=== PATIENT | male | born 1945 | race Caucasian/White ===

== ENCOUNTER 2017-09-13 10:07 | Day surgery (SDC) | payer MEDICARE, BC ==
[2017-09-08 09:30] VITALS: BMI 29.5
[~2017-09-13 10:07] MED LIST: LACTATED RINGERS 1,000 ML IV SCH
[2017-09-13 10:56] VITALS: RESP 16; TEMP 98.1
[2017-09-13] MEDS ORDERED: LIDOCAINE 1% 20 ML VIAL (10MG/ML) FOR IV START INTRADERMA ONE (10:59)
[2017-09-13] MEDS ORDERED: PROPOFOL 10 MG/ML 20 ML VIAL IV ONE (11:17)
--- NOTE | 2017-09-13 11:47 | P.PCN ---
Date of Procedure: 09/13/17 Procedure(s) Performed: Procedure: Total colonoscopy. Preoperative diagnosis: Screening for neoplasia. Postoperative diagnosis: Exam within normal limits. Preparation: HalfLytely prep. Sedation: Was provided by anesthesia. Brief clinical history: The patient is a 72-year-old male who is referred for this evaluation for screening for neoplasia. He had a prior colonoscopy more than 11 years ago. He believes he had a polyp removed back then. At this time , he has no abdominal complaints, bleeding or anemia. Procedure: With the patient on his left lateral decubitus position and after informed consent and adequate sedation, the perianal area was inspected and it did not show any fissures or fistulas. There were no masses felt on digital rectal examination. The Olympus CFQ 160L video colonoscope was then inserted in the rectum in the usual fashion and advanced to the cecum. The mucosa appeared healthy. No polyps or tumors were seen or any obvious diverticular disease or other pathology. I retroflexed the endoscope in the rectum before the endoscope was withdrawn. The patient tolerated the procedure well. Plan: The patient was reassured. Will follow up with you as planned and I recommended repeat exam in 10 years.
[2017-09-13 12:04] VITALS: BP 151/74; PULSE 58
== END 2017-09-13 12:28 | disposition home or self-care (01) ==
LOC: ORWHC2ENDO 10:07
DX: Z12.11 Encounter for screening for malignant neoplasm of colon (principal); E78.5 Hyperlipidemia, unspecified; E07.9 Disorder of thyroid, unspecified; G60.0 Hereditary motor and sensory neuropathy; Z79.82 Long term (current) use of aspirin; Z79.890 Hormone replacement therapy; Z79.899 Other long term (current) drug therapy
CPT/HCPCS: J2704; G0121

== ENCOUNTER 2022-02-17 06:28 | Day surgery (SDC) | payer BC, MEDICARE ==
[2022-02-16 09:14] VITALS: BMI 28.5
[~2022-02-17 06:28] MED LIST changes: +LIDOCAINE 1% (10MG/ML) FOR IV START INTRADERMA PRN; +MOXIFLOXACIN HCL 0.5% DROPS 3 ML BTL OP PRN; +TETRACAINE 0.5% OPHTH (PF) DROPS 4 ML BTL OP PRN; +TIMOLOL 0.5% OPHTH DROPS 5 ML BTL OP PRN
[2022-02-17 06:58] VITALS: RESP 16; TEMP 97.6
[2022-02-17] MEDS: PILOCARPINE 2% OPHTH DROPS 15 ML BTL OP PRN ×3 (07:02→07:16)
[2022-02-17] MEDS ORDERED: MIDAZOLAM 2 MG/2 ML VIAL ONE (07:53)
[2022-02-17] MEDS ORDERED: fentaNYL (PF) 50 MCG/ML 2 ML AMP ONE (07:53)
[2022-02-17] MEDS ORDERED: CHONDROITIN-SOD HYALURONATE 1 EACH SYRINGE (0.75 ML) INTRAOCULA ONE (07:55)
[2022-02-17] MEDS ORDERED: LIDOCAINE 1% INJ 10MG/ML (5 ML VIAL-PF) SQ ONE (07:56)
[2022-02-17] MEDS ORDERED: TRYPAN BLUE 0.06% SYRINGE 0.5 ML SYRINGE INTRAOCULA ONE (07:58)
[2022-02-17] MEDS ORDERED: BALANCED SALT IRRIG SOLN COMB2 500 ML IRRIGATION ONE (08:01)
[2022-02-17] MEDS ORDERED: MOXIFLOXACIN HCL 0.5% DROPS 3 ML BTL RIGHT EYE ONE ×2 (08:06→08:21)
[2022-02-17] MEDS ORDERED: TIMOLOL 0.5% OPHTH DROPS 5 ML BTL RIGHT EYE ONE ×2 (08:07→08:21)
[2022-02-17] MEDS ORDERED: BALANCED SALT IRRIG SOLN COMB2 15 ML IRRIG.SOLN IRRIGATION ONE (08:15)
--- NOTE | 2022-02-17 08:22 | P.OP ---
Date of Procedure: 02/17/22 Preoperative Diagnosis: POAG moderate Postoperative Diagnosis: same Implants: goniotomy OD Anesthesia: MAC Surgeon: Quinten Haines Pathology: none sent Condition: stable Disposition: same day Indications for Procedure: better glaucoma control Operative Findings: no complications
[2022-02-17 08:32] VITALS: BP 153/91
[2022-02-17 08:42] VITALS: PULSE 53
--- NOTE | 2022-02-18 09:27 | OP ---
OPERATIVE REPORT DATE OF SURGERY: February 17, 2022. PROCEDURE PERFORMED: Goniotomy of the right eye. PREOPERATIVE DIAGNOSIS: Primary open-angle glaucoma, moderate stage. POSTOPERATIVE DIAGNOSIS: Primary open angle glaucoma, moderate stage. SURGEON: Dr. Quinten Haines. ANESTHESIA: Topical. ESTIMATED BLOOD LOSS: Less than 5 mL. SPECIMEN: Taken none. NARRATIVE: After obtaining the appropriate consent, the patient was brought to the operating room. There he was placed on cardiac monitoring prepped and draped in the usual sterile manner. He was approached from his right temporal side and at the 9 o'clock position, a 2.5 mm keratome was used to create a self-sealing corneal flap incision. Through this opening 1% Xylocaine MPF 50/50 mixed with balanced salt solution was injected into the anterior chamber. This was followed by Trypan blue which was allowed to dwell in the eye for about 1 minute. The Trypan blue was then irrigated away and replaced with Viscoat. The patient was then asked to rotate his head approximately 45 degrees to his left and maintain gaze in that general direction. A gonio prism was placed on the patient's eye and the trabecular meshwork was easily identified with Trypan blue staining. A KBD goniotomy knife was passed across the anterior chamber to the nasal trabecular meshwork and using an inside-out technique. The anterior trabecular meshwork was removed easily from the patient's eye. A mild amount of bleeding was encountered as would be expected. The KBD knife was then removed from the anterior chamber and the remaining viscoelastic was then removed under irrigation and aspiration. The eye was then brought to slightly higher than normal intra-ocular pressure through the temporal incision after hydrating the incision with balance salt solution. The incision was then confirmed watertight. He received 2 drops of 0.5% timolol followed by 2 drops of moxifloxacin. He was then lightly patched and shielded in the usual manner. There were no complications from the procedure. He tolerated the procedure well. She returned to outpatient recovery in good condition. MMODL / IJN: [id number] /
== END 2022-02-17 09:16 | disposition home or self-care (01) ==
LOC: OR 06:28
PROVIDERS: ATTEND Ophthalmology
DX: H40.1132 Primary open-angle glaucoma, bilateral, moderate stage (principal); H04.129 Dry eye syndrome of unspecified lacrimal gland; H25.13 Age-related nuclear cataract, bilateral; H52.223 Regular astigmatism, bilateral; Z96.1 Presence of intraocular lens; E78.00 Pure hypercholesterolemia, unspecified; Z87.891 Personal history of nicotine dependence; Z83.3 Family history of diabetes mellitus; E03.9 Hypothyroidism, unspecified; Z79.82 Long term (current) use of aspirin; Z79.890 Hormone replacement therapy; Z79.899 Other long term (current) drug therapy; E78.5 Hyperlipidemia, unspecified; K21.9 Gastro-esophageal reflux disease without esophagitis; G62.9 Polyneuropathy, unspecified; Z80.51 Family history of malignant neoplasm of kidney; Z82.49 Family history of ischemic heart disease and other diseases of the circulatory system
CPT/HCPCS: 65820; J2250; J2001; J3010

== ENCOUNTER 2022-08-18 06:52 | Day surgery (SDC) | payer MEDICARE ==
[2022-08-13 16:33] VITALS: BMI 33.2
[2022-08-18] MEDS ORDERED: ONDANSETRON 4 MG/2 ML VIAL IVP PRN (07:00)
[2022-08-18] MEDS: CYCLOPENTOLATE 1% OPHTH SOLN 2 ML BTL OP PRN ×3 (08:25→08:37)
[2022-08-18] MEDS ORDERED: LACTATED RINGERS 1,000 ML IV ONE (08:26)
[2022-08-18] MEDS: PHENYLEPHRINE 2.5% OPHTH DRP 2ML OP PRN ×3 (08:28→08:40)
[2022-08-18 08:44] VITALS: TEMP 98
[2022-08-18] MEDS ORDERED: MIDAZOLAM 2 MG/2 ML VIAL ONE (09:34)
[2022-08-18] MEDS ORDERED: fentaNYL (PF) 50 MCG/ML 2 ML AMP ONE (09:34)
[2022-08-18] MEDS ORDERED: LIDOCAINE 1% (PF) 10MG/ML VIAL MISCELLANE ONE (09:49)
[2022-08-18] MEDS ORDERED: BALANCED SALT IRRIG SOLN COMB2 15 ML IRRIG.SOLN IRRIGATION ONE (09:49)
[2022-08-18] MEDS ORDERED: DUOVISC KIT (GREEN BOX) INTRAOCULA ONE (09:49)
[2022-08-18] MEDS ORDERED: EPINEPHrine (PF) 0.3 ML in BALANCED SALT IRRIG SOLN COMB2 500 ML IRRIGATION ONE (09:52)
--- NOTE | 2022-08-18 10:13 | P.OP ---
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
[2022-08-18 10:31] VITALS: BP 156/82; PULSE 57; RESP 17
--- NOTE | 2022-08-18 20:17 | OP ---
OPERATIVE REPORT PROCEDURE PERFORMED: Phacoemulsification of cataract with intraocular lens implant of the left eye with goniotomy of the left eye. PREOPERATIVE DIAGNOSES: Nuclear sclerosis, cortical sclerosis, posterior subcapsular cataract, and pseudoexfoliative glaucoma, left eye. POSTOPERATIVE DIAGNOSES: Nuclear sclerosis, cortical sclerosis, posterior subcapsular cataract, and pseudoexfoliative glaucoma, left eye. ANESTHESIA: Topical. ESTIMATED BLOOD LOSS: Less than 5 mL. SPECIMEN TAKEN: None. NARRATIVE: After obtaining the appropriate consent, the patient was brought to the operating room. There, he was asked to sit upright, and the axes 0 and 180 degrees were identified and marked with a gentian mike marker. He was then placed in the proper supine position under cardiac monitoring and prepped and draped in the usual sterile manner. Using previously-acquired corneal topography information, the axis of 134 degrees was identified and marked with a Uanbai axis marker. At the 5 o'clock position, an MVR blade was used to create a paracentesis port. Through this opening, 1% Xylocaine MPF 50:50 mix with balanced salt solution was injected into the anterior chamber. This was followed by stabilization of the anterior chamber with Viscoat. At the 3 o'clock position, a 2.5 mm keratome was used to create a self-sealing corneal flap incision. The patient was then asked to rotate his head approximately 45 degrees to his right, and a Gonio prism was placed on the patient's eye. The trabecular meshwork was easily identified due to the pseudoexfoliative material buildup, and the goniotomy knife was passed across the anterior chamber, and a goniotomy performed for approximately 5 clock hours on the nasal side of the patient's eye was accomplished using the arvin and meet method. The patient was then rotated to the normal supine position, and a cystotome was used to begin a continuous tear capsulorrhexis, which was then completed using the Utrata forceps. Hydrodissection and hydrodelineation of the lens were accomplished with balanced salt solution. Phacoemulsification of the lens utilizing phaco chop was accomplished in 18.86 seconds at 19% power. Additional Xylocaine MPF was instilled into the anterior chamber. This was followed by removal of the remaining cortical material as well as careful polishing of the posterior capsule in capsule vacuum mode. Provisc was then used to stabilize the capsular bag, and a 13 mm capsular tension ring, model [id number] was passed across the anterior chamber and into the capsular bag at the equator. The lens was deployed into the capsular bag without difficulty. This was followed by placement of a Bausch and Lomb MX60ET 19.5 x 1.25 posterior chamber intraocular lens. The remaining viscoelastic was removed from in and around the intraocular lens, and the axis of the lens was then aligned with the previously-placed corneal noonan at about 134 degrees. The eye was then brought to slightly above normal intraocular pressure through the paracentesis port, and the wounds were hydrated to ensure closure and reduce risk of rotation of the implant. Tisseel was used to ensure proper closure of both the paracentesis as well as the main incision. He then received 2 drops of 0.5% timolol followed by 2 drops of moxifloxacin, was then lightly patched and shielded in the usual manner. There were no complications from the procedure. He tolerated the procedure well and was returned to outpatient recovery in good condition. MMKATHERINE / DEUCEN: [id number] /
== END 2022-08-18 10:55 | disposition home or self-care (01) ==
LOC: OR 06:52
PROVIDERS: ATTEND Ophthalmology
DX: H25.12 Age-related nuclear cataract, left eye (principal); H40.1211 Low-tension glaucoma, right eye, mild stage; H40.1420 Capsular glaucoma with pseudoexfoliation of lens, left eye, stage unspecified; H25.042 Posterior subcapsular polar age-related cataract, left eye; H25.012 Cortical age-related cataract, left eye; H40.1132 Primary open-angle glaucoma, bilateral, moderate stage; H04.129 Dry eye syndrome of unspecified lacrimal gland; H10.45 Other chronic allergic conjunctivitis; H26.8 Other specified cataract; H43.391 Other vitreous opacities, right eye; H52.11 Myopia, right eye; H52.223 Regular astigmatism, bilateral; Z96.1 Presence of intraocular lens
CPT/HCPCS: 66984; 65820; C1762; C1780; J2250; J2405; J0171; J3010; J2001

== ENCOUNTER → 2023-08-02 | Outpatient (CLI) | payer MEDICARE ==
--- NOTE | 2023-08-02 16:39 | US ---
EXAMINATION TYPE: US scrotum with doppler. Grayscale and color Doppler Duplex imaging performed of t simran scrotum. DATE OF EXAM: 08/02/2023 COMPARISON: NONE CLINICAL INDICATION: Male, 78 years old with history of N50.89 OTHER SPECIFIED DISORDERS OF THE MALE GENIT; Pressure and edema bilaterally EXAM MEASUREMENTS: TESTICLES: Right Testicle: 4.9 x 2.6 x 3.3 cm Left Testicle: 4.4 x 2.4 x 3.9 cm EPIDIDYMIS HEAD: Right Epididymis: 1.4 cm Left Epididymis: 1.5 cm Doppler performed to assess for testicular vascularity; good bilateral color flow and waveforms are s een. There is no evidence of testicular torsion. Presence of hydroceles: yes, 4.2cm on the right and 3.9cm on the left Presence of varicoceles: no heterogeneous epididymis bilaterally tubular structure lateral to right testicle IMPRESSION: 1. Bilateral hydroceles.
== END | disposition home or self-care (01) ==
LOC: RADUSWWP 07:07
PROVIDERS: ATTEND Family Medicine
DX: N43.3 Hydrocele, unspecified (principal); N50.89 Other specified disorders of the male genital organs
CPT/HCPCS: 76870; 93975

== ENCOUNTER 2023-10-19 06:56 | Day surgery (SDC) | payer MEDICARE ==
[2023-10-19] MEDS: PILOCARPINE 2% OPHTH DROPS 15 ML BTL OP PRN (08:21)
[2023-10-19] MEDS: LACTATED RINGERS 1,000 ML IV SCH (08:28)
[2023-10-19 09:04] VITALS: TEMP 97.4
[2023-10-19] MEDS ORDERED: fentaNYL (PF) 50 MCG/ML 2 ML AMP ONE (09:24)
[2023-10-19] MEDS ORDERED: MIDAZOLAM 2 MG/2 ML VIAL ONE (09:24)
[2023-10-19] MEDS: mitoMYcin for Eyes 0.06 MG, EMPTY SYRINGE 1 SYR OP PRN (09:40)
[2023-10-19] MEDS: ATROPINE OPHTH SOLN 1% 5ML BTL OPHTHALMIC PRN (09:40)
[2023-10-19] MEDS: BALANCED SALT IRRIG SOLN COMB2 15 ML IRRIG.SOLN IRRIGATION ONE (09:41)
[2023-10-19] MEDS: LIDOCAINE 2%-EPI 1:100,000 20 ML VIAL SUBMUCOSAL ONE ×2 (09:42)
[2023-10-19] MEDS: EPINEPHrine (PF) 0.3 ML in BALANCED SALT IRRIG SOLN COMB2 500 ML IRRIGATION ONE (09:43)
[2023-10-19] MEDS: MOXIFLOXACIN HCL 0.5% DROPS 3 ML BTL RIGHT EYE ONE (09:44)
[2023-10-19] MEDS: FLUORESCEIN STRIPS 1 MG STRIP RIGHT EYE ONE (10:10)
--- NOTE | 2023-10-19 10:25 | P.OP ---
Date of Procedure: 10/19/23 Preoperative Diagnosis: POAG severe and uncontrolled Postoperative Diagnosis: same Procedure(s) Performed: Sunt impolnataion and MMC treatment for trabeculectomy, OD Implants: Ex-Press shunt P-50 Anesthesia: MAC Surgeon: Quinten aHines Pathology: none sent Condition: stable Disposition: same day Indications for Procedure: poorly controlled glaucoma Operative Findings: no complications
[2023-10-19 10:56] VITALS: PULSE 58; RESP 16
[2023-10-19 11:33] VITALS: BP 137/69
--- NOTE | 2023-10-19 21:03 | OP ---
OPERATIVE REPORT DATE OF SERVICE : 10/19/2023 PROCEDURE: Shunt implantation with mitomycin for the right eye. PREOPERATIVE DIAGNOSIS: Secondary glaucoma, poorly controlled of the right eye. POSTOPERATIVE DIAGNOSIS: Secondary glaucoma, poorly controlled of the right eye. ANESTHESIA: Monitored anesthesia care. ESTIMATED BLOOD LOSS: Less than 5 mL. SPECIMEN TAKEN: None. NARRATIVE: After obtaining the appropriate consent, the patient was brought to the operating room where he was placed under cardiac monitoring and prepped and draped in the usual sterile manner. He was approached from the 12 o'clock position, and a 6-0 silk suture was placed through the superior limbus of the cornea, and traction was applied to downturn the eye to expose the superior conjunctivae. At the temporal side of the eye, a small conjunctival incision using sharp and blunt dissection was extended across the superior area of the globe. Initially, this was infiltrated with 2% lidocaine and epinephrine to provide anesthesia as well as some hemostasis to the area involved. Using Dieudonne scissors and sharp and blunt dissection, a peritomy was performed along the superior limbus of the cornea and dissection of the conjunctival tissue with Tenon's capsule, was bluntly dissected as far posteriorly as was permissible from the 9 o'clock to 3 o'clock position. Hemostasis was controlled using bipolar cautery. An area centrally adjacent to the limbus was chosen of 3 mm x 3 mm in size, which was confirmed using a Brake caliper. A partial-thickness scleral flap was raised and dissected towards the limbus of the cornea using a beveled crescent blade knife. Once this pocket was created, a Dieudonne scissors were placed against the inside of the pocket and releasing each side of the pocket to create the partial-thickness scleral flap. At this point, mitomycin 0.2 mg/mL, which was placed against the apex of the flap and under conjunctiva using a small piece of a Weck-Eulalia sponge material. This was left in place for about 3 minutes. The area was then copiously irrigated with balanced salt solution, and a 27-gauge hypodermic needle used as a trocar was marked with gentian mike and placed at the apex of the flap centrally between each side of the flap and was used to enter into the anterior chamber parallel to the iris. Once this opening was piloted, then the express shunt P50 was advanced through the opening into the anterior chamber. Confirmation of aqueous percolating through the shunt was easily identified when drying the area with a Weck-Eulalia sponge. The flap was then gently laid in place and two 10-0 nylon sutures were placed, one on each side of the flap to reduce the outflow, and the conjunctiva was then brought over the superior limbus of the cornea and was secured with 2 single interrupted 8-0 Vicryl sutures. Fluorescein was used to confirm watertight integrity while the conjunctiva was beginning to demonstrate the appropriate ballooning as one would expect with fluid being percolating through the area. The traction suture was removed from the eye, and a repeat Schiotz tonometry was performed on the eye. Using the Schiotz tonometer, a pressure of 4 mmHg or less with a 5.5 g weight was noted in comparison to the 25.8 mmHg using a 7.5 g weight on the Schiotz tonometer at the beginning of the case. Once this was confirmed, the patient then received 2 drops of 0.5% moxifloxacin as well as 2 drops of 1% atropine, which was then sent with the patient for him to continue to use beginning the day after surgery. The eye was then lightly patched and shielded, and he was returned to recovery in good condition. There were no complications from the procedure. He tolerated the procedure well and was returned to outpatient recovery in good condition. MMKATHERINE / WES: [id number] /
[2023-10-20] MEDS ORDERED: TETRACAINE 0.5% OPHTH (PF) DROPS 4 ML BTL OP PRN (05:00)
== END 2023-10-19 11:33 | disposition home or self-care (01) ==
LOC: OR 06:56
PROVIDERS: ATTEND Ophthalmology
DX: H40.1113 Primary open-angle glaucoma, right eye, severe stage (principal); E07.9 Disorder of thyroid, unspecified; K21.9 Gastro-esophageal reflux disease without esophagitis; Z79.890 Hormone replacement therapy; Z79.899 Other long term (current) drug therapy; Z98.890 Other specified postprocedural states
CPT/HCPCS: 66170; C1783; J2250; J0171; J3010

== ENCOUNTER 2024-06-06 08:55 | Day surgery (SDC) | payer MEDICARE ==
[~2024-06-06 08:55] MED LIST changes: -LIDOCAINE 1% (10MG/ML) FOR IV START INTRADERMA PRN; -MOXIFLOXACIN HCL 0.5% DROPS 3 ML BTL OP PRN; -TIMOLOL 0.5% OPHTH DROPS 5 ML BTL OP PRN
[2024-06-06] MEDS: IV FLUID CONTINUATION 1,000 ML IV ONE (09:32)
[2024-06-06] MEDS: PILOCARPINE 2% OPHTH DROPS 15 ML BTL OP PRN (09:45)
[2024-06-06 09:48] VITALS: TEMP 97.3
[2024-06-06] MEDS ORDERED: MIDAZOLAM 2 MG/2 ML VIAL ONE (11:08)
[2024-06-06] MEDS ORDERED: fentaNYL (PF) 50 MCG/ML 2 ML AMP ONE (11:08)
[2024-06-06] MEDS: mitoMYcin for Eyes 0.06 MG, EMPTY SYRINGE 1 SYR OP PRN (11:27)
[2024-06-06] MEDS: ATROPINE OPHTH SOLN 1% 5ML BTL OPHTHALMIC PRN (11:28)
[2024-06-06] MEDS: BALANCED SALT IRRIG SOLN COMB2 15 ML IRRIG.SOLN IRRIGATION ONE (11:28)
[2024-06-06] MEDS: LIDOCAINE 1% INJ 10MG/ML (5 ML VIAL-PF) SQ ONE (11:30)
[2024-06-06] MEDS: FLUORESCEIN STRIPS 1 MG STRIP RIGHT EYE ONE (12:20)
[2024-06-06] MEDS: NEOMYCIN-POLYMYXIN-DEXAMETH OINT 3.5 GM TUBE RIGHT EYE ONE (12:21)
--- NOTE | 2024-06-06 12:27 | P.OP ---
Date of Procedure: 06/06/24 Preoperative Diagnosis: glaucoma uncontrolled and bleb scar tissue Postoperative Diagnosis: same Procedure(s) Performed: bleb revision OD Implants: none Anesthesia: MAC Surgeon: Quinten Haines Pathology: none sent Condition: stable Disposition: same day Indications for Procedure: glaucoma control Operative Findings: no complications,
[2024-06-06 13:20] VITALS: BP 137/73; PULSE 67; RESP 16
--- NOTE | 2024-06-07 09:29 | OP ---
OPERATIVE REPORT DATE OF SERVICE : 06/06/2024 PROCEDURE: Revision of trabeculectomy bleb flap. PREOPERATIVE DIAGNOSIS: Primary open angle glaucoma. POSTOPERATIVE DIAGNOSIS: Primary open angle glaucoma. ANESTHESIA: Topical. ESTIMATED BLOOD LOSS: Less than 5 mL. SPECIMEN TAKEN: None. NARRATIVE: After obtaining the appropriate consent, the patient was brought to the operating room, there he was placed under cardiac monitoring and prepped and draped in the usual sterile manner. He was approached from the 12 o'clock position and using a 6-0 silk suture as traction, this was placed through the superior limbus of the cornea and the eye was then placed in a down gaze direction at the superotemporal quadrant using sharp and blunt dissection with Dieudonne scissors. An opening through the conjunctiva down to bare sclera was performed. Through this opening, 1% lidocaine with epinephrine was injected through the subtenon space across the entirety of the superior limbus of the cornea recreating the large bleb needed for drainage. Wet bipolar cautery was used to control hemostasis. Once this area was opened and cleaned of any remaining adhesions, mitomycin 0.2 mg/dL was placed on the tissue and left in contact with the conjunctiva and subtenon space for approximately 4 minutes. Once the dwell time has completed, this area was irrigated aggressively with balanced salt solution and the previously made flap was easily identified and all remaining adhesions which were not allowing this flap to drain were removed without too much difficulty. Additional hemostasis was applied with the bipolar cautery. The internal pressure of the eye immediately dropped to 0. Fluorescein was used to identify the egress of aqueous from the previously placed Express shunt tube. The flap was lowered back into place without any 10-0 suturing and the conjunctiva was brought over the superior limbus of the cornea and closed using 8-0 Vicryl sutures. The incision was confirmed watertight with the fluorescein and the traction suture was removed from the superior limbus of the cornea. The patient received a drop of atropine and a copious amount of neomycin polymyxin B ointment was placed in the eye. The eye was lightly patched and shielded. He was then returned to recovery in good condition. There were no complications from this procedure. MMODL / IJN: [id number] /
== END 2024-06-06 13:52 | disposition home or self-care (01) ==
LOC: OR 08:55
PROVIDERS: ATTEND Ophthalmology
DX: H40.1120 Primary open-angle glaucoma, left eye, stage unspecified (principal); C44.90 Unspecified malignant neoplasm of skin, unspecified; E03.9 Hypothyroidism, unspecified; K21.9 Gastro-esophageal reflux disease without esophagitis; F10.99 Alcohol use, unspecified with unspecified alcohol-induced disorder; G62.9 Polyneuropathy, unspecified; F12.90 Cannabis use, unspecified, uncomplicated; Z87.891 Personal history of nicotine dependence; Z79.890 Hormone replacement therapy; Z79.899 Other long term (current) drug therapy
CPT/HCPCS: 66170; J2250; J2003; J3010

== ENCOUNTER 2025-01-16 17:12 | Emergency (ER) | payer MEDICARE ==
--- NOTE | 2025-01-16 17:39 | ED ---
Abdominal Pain HPI - General Source: patient, RN notes reviewed <Tami Mallory - Last Filed: 01/16/25 17:38> <Genoveva Kirk - Last Filed: 01/19/25 21:20> - General Stated Complaint: R Side Abd Pain/NV Time Seen by Provider: 01/16/25 17:30 - History of Present Illness Initial Comments: Quick [id number] male presenting to the emergency department with referral from urgent care for concerns of right lower quadrant abdominal pain since Tuesday that mildly radiates into his back. Patient denies associated fevers, chills, nausea, vomiting, urinary symptoms. Previous hernia repair. (Tami Mallory) 79-year-old male presents to the emergency department for evaluation of abdominal pain. He notes that this started on Tuesday. He reports the pain is in the right lower abdomen. He does note that it had improved from Tuesday but he still has mild pain in the region. He denies any aggravating or alleviating factors. Denies any fever, chills, nausea, vomiting, changes in bowel movements, urinary symptoms. (Genoveva Kirk) - Related Data Home Medications Medication Instructions Recorded Confirmed Pregabalin [Lyrica] 100 mg PO TID 03/05/16 06/06/24 Fenofibric Acid (Choline) 135 mg PO DAILY 09/08/17 06/06/24 [Fenofibric Acid] Levothyroxine Sodium [Synthroid] 150 mcg PO DAILY 02/16/22 06/06/24 Multivitamins, Thera [Multivitamin 1 tab PO DAILY 02/16/22 06/06/24 (formulary)] Simvastatin 80 mg PO HS 02/16/22 06/06/24 Latanoprostene Bunod [Vyzulta] 1 drop BOTH EYES HS 08/16/22 06/06/24 Allergies Allergy/AdvReac Type Severity Reaction Status Date / Time No Known Allergies Allergy Verified 01/16/25 17:41 Review of Systems ROS Other: All systems not noted in ROS Statement are negative. <Tami Mallory - Last Filed: 01/16/25 17:38> ROS Other: All systems not noted in ROS Statement are negative. <Genoveva Kirk - Last Filed: 01/19/25 21:20> ROS Statement: Those systems with pertinent positive or pertinent negative responses have been documented in the HPI. 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 Absent: scleral icterus, conjunctival injection, periorbital swelling ENT exam: Present: normal exam, mucous membranes moist Neck exam: Present: normal inspection. Absent: tenderness, meningismus, lymphadenopathy Respiratory exam: Present: normal lung sounds bilaterally. Absent: respiratory distress, wheezes, rales, rhonchi, stridor Cardiovascular Exam: Present: regular rate, normal rhythm, normal heart sounds. Absent: systolic murmur, diastolic murmur, rubs, gallop, clicks GI/Abdominal exam: Present: soft, normal bowel sounds. Absent: distended, tenderness, guarding, rebound, rigid Extremities exam: Present: normal inspection, full ROM, normal capillary refill. Absent: tenderness, pedal edema, joint swelling, calf tenderness Back exam: Present: normal inspection Neurological exam: Present: alert, oriented X3 Psychiatric exam: Present: normal affect, normal mood Skin exam: Present: warm, dry, intact, normal color. Absent: rash <Genoveva Kirk - Last Filed: 01/19/25 21:20> - General Exam Comments Initial Comments: Visual Physical Exam Vital signs reviewed General: Well-appearing, nontoxic, no acute distress. Head: Normocephalic, atraumatic Eyes: PERRLA, EOMI ENT: Airway patent Chest: Nonlabored breathing Skin: No visual rash, normal skin tone Neuro: Alert and oriented 3 Musculoskeletal: No gross abnormalities (Tami Mallory) Course Vital Signs 01/16/25 01/16/25 17:38 22:51 Temperature 98.7 F 97.5 F L Pulse Rate 76 65 Respiratory 18 18 Rate Blood Pressure 147/82 149/91 O2 Sat by Pulse 95 98 Oximetry Medical Decision Making <Tami Mallory - Last Filed: 01/16/25 17:38> - Lab Data Result diagrams: 01/16/25 18:20 01/16/25 18:20 <Genoveva Kirk - Last Filed: 01/19/25 21:20> - Medical Decision Making I completed the quick note portion of this chart signed Tami Mallory PA-C (Tami Mallory) Was pt. sent in by a medical professional or institution ([facility], [employer], urgent care, hospital, or [place] health care facility...) When possible be specific @ -No Did you speak to anyone other than the patient for history (EMS, parent, family, police, friend...)? What history was obtained from this source @ -No Did you review nursing and triage notes (agree or disagree)? Why? @ -I reviewed and agree with nursing and triage notes Were old charts reviewed (outside hosp., previous admission, EMS record, old EKG, old radiological studies, urgent care reports/EKG's, [place] health care facility records)? Report findings @ -No old charts were reviewed Differential Diagnosis (chest pain, altered mental status, abdominal pain women, abdominal pain men, vaginal bleeding, weakness, fever, dyspnea, syncope, headache, dizziness, GI bleed, back pain, seizure, CVA, palpatations, mental health, musculoskeletal)? @ -Differential Abdominal Pain Men: Appendicitis, cholecystitis, diverticulosis, ischemic bowel, pancreatitis, hepatitis, UTI, gastroenteritis, AAA, incarcerated hernia, bowel obstruction, constipation, inflammatory bowel, hepatitis, peptic ulcer disease, splenic infarction, perforated viscus, testicular torsion, this is not meant to be an all-inclusive list EKG interpreted by me (3pts min.). @ -None X-rays interpreted by me (1pt min.). @ -None done CT interpreted by me (1pt min.). @ -CT abdomen pelvis reveals no evidence of acute process U/S interpreted by me (1pt. min.). @ -None done What testing was considered but not performed or refused? (CT, X-rays, U/S, labs)? Why? @ -None What meds were considered but not given or refused? Why? @ -None Did you discuss the management of the patient with other professionals (professionals i.e. , PA, [employer] C[employer]TER, lab, RT, psych nurse, high school social studies teacher, youth corrections officer, teacher, benefits officer, registered nurse hh case manager)? Give summary @ -No Was smoking cessation discussed for >3mins.? @ -No Was critical care preformed (if so, how long)? @ -No Were there social determinants of health that impacted care today? How? (Homelessness, low income, unemployed, alcoholism, drug addiction, transportation, low edu. Level, literacy, decrease access to med. care, intermediate, rehab)? @ -No Was there de-escalation of care discussed even if they declined (Discuss DNR or withdrawal of care, Hospice)? DNR status @ -No What co-morbidities impacted this encounter? (DM, HTN, Smoking, COPD, CAD, Cancer, CVA, ARF, Chemo, Hep., AIDS, mental health diagnosis, sleep apnea, morbid obesity)? @ -None Was patient admitted / discharged? Hospital course, mention meds given and route, prescriptions, significant lab abnormalities, going to OR and other pertinent info. @ -Discharge. Patient presented emergency department for evaluation of abdominal pain. Laboratory studies were obtained for the patient was in the waiting room.CBC revealed no significant leukocytosis, hemoglobin 16.3; CMP is nonactionable, no significant lactic acidosis. UA shows no evidence of infectious process. CT of the abdomen pelvis obtained reveals no evidence of acute process. Patient was advised on findings and will be discharged home. Advise follow-up with his primary care provider. He is understanding agreeable with plan. Patient stable at time of discharge. Case discussed with Dr. Nascimento Undiagnosed new problem with uncertain prognosis? @ -No Drug Therapy requiring intensive monitoring for toxicity (Heparin, Nitro, Insulin, Cardizem)? @ -No Were any procedures done? @ -No Diagnosis/symptom? @ -Abdominal pain Acute, or Chronic, or Acute on Chronic? @ -Acute Uncomplicated (without systemic symptoms) or Complicated (systemic symptoms)? @ -Uncomplicated Side effects of treatment? @ -No Exacerbation, Progression, or Severe Exacerbation? @ -No Poses a threat to life or bodily function? How? (Chest pain, [place], [place], pneumonia, PE, COPD, DKA, ARF, appy, cholecystitis, CVA, Diverticulitis, Homicidal, Suicidal, threat to staff... and all critical care pts) @ -No (Genoveva Kirk) - Lab Data Lab Results 01/16/25 01/16/25 01/16/25 Range/Units 18:20 18:20 18:20 WBC 6.99 (4.50-10.00) 10*3/uL RBC 5.22 (4.40-5.60) 10*6/uL Hgb 16.3 (13.0-17.0) g/dL Hct 47.4 (39.6-50.0) % MCV 90.8 (80.0-97.0) fL MCH 31.2 (27.0-32.0) pg MCHC 34.4 (32.0-37.0) g/dL Plt Count 156 (140-440) 10*3/uL MPV 11.9 (9.5-12.2) fL Immature Gran % (Auto) 0.4 % Neutrophils % 54.3 % Lymphocytes % 30.8 % Monocytes % 11.9 % Eosinophils % 1.7 % Basophils % 0.9 % Immature Gran # 0.03 (0.00-0.04) 10*3/uL Neutrophils # 3.80 (1.80-7.70) 10*3/uL Lymphocytes # 2.15 (0.90-5.00) 10*3/uL Monocytes # 0.83 (0.20-1.00) 10*3/uL Eosinophils # 0.12 (0.04-0.35) 10*3/uL Basophils # 0.06 (0.00-0.10) 10*3/uL Sodium 137 (137-145) mmol/L Potassium 4.3 (3.5-5.1) mmol/L Chloride 104 (98-107) mmol/L Carbon Dioxide 26 (22-30) mmol/L Anion Gap 7 mmol/L BUN 12 (9-20) mg/dL Creatinine 0.84 (0.66-1.25) mg/dL Est GFR (CKD-EPI)AfAm >90 (>60 ml/min/1.73 sqM) Est GFR (CKD-EPI)NonAf 85 (>60 ml/min/1.73 sqM) Glucose 96 (74-99) mg/dL Plasma Lactic Acid Otto 1.0 (0.7-2.0) mmol/L Calcium 9.6 (8.4-10.2) mg/dL Total Bilirubin 0.8 (0.2-1.3) mg/dL AST 42 (17-59) U/L ALT 38 (4-49) U/L Alkaline Phosphatase 71 (38-126) U/L Total Protein 7.2 (6.3-8.2) g/dL Albumin 4.4 (3.5-5.0) g/dL Lipase 103 (23-300) U/L Urine Color Urine Appearance (Clear) Urine pH (5.0-8.0) Ur Specific [place] (1.001-1.035) Urine Protein (Negative) Urine Glucose (UA) (Negative) Urine Ketones (Negative) Urine Blood (Negative) Urine Nitrite (Negative) Urine Bilirubin (Negative) Urine Urobilinogen (<2.0) mg/dL Ur Leukocyte Esterase (Negative) 01/16/25 Range/Units 19:30 WBC (4.50-10.00) 10*3/uL RBC (4.40-5.60) 10*6/uL Hgb (13.0-17.0) g/dL Hct (39.6-50.0) % MCV (80.0-97.0) fL MCH (27.0-32.0) pg MCHC (32.0-37.0) g/dL Plt Count (140-440) 10*3/uL MPV (9.5-12.2) fL Immature Gran % (Auto) % Neutrophils % % Lymphocytes % % Monocytes % % Eosinophils % % Basophils % % Immature Gran # (0.00-0.04) 10*3/uL Neutrophils # (1.80-7.70) 10*3/uL Lymphocytes # (0.90-5.00) 10*3/uL Monocytes # (0.20-1.00) 10*3/uL Eosinophils # (0.04-0.35) 10*3/uL Basophils # (0.00-0.10) 10*3/uL Sodium (137-145) mmol/L Potassium (3.5-5.1) mmol/L Chloride (98-107) mmol/L Carbon Dioxide (22-30) mmol/L Anion Gap mmol/L BUN (9-20) mg/dL Creatinine (0.66-1.25) mg/dL Est GFR (CKD-EPI)AfAm (>60 ml/min/1.73 sqM) Est GFR (CKD-EPI)NonAf (>60 ml/min/1.73 sqM) Glucose (74-99) mg/dL Plasma Lactic Acid Otto (0.7-2.0) mmol/L Calcium (8.4-10.2) mg/dL Total Bilirubin (0.2-1.3) mg/dL AST (17-59) U/L ALT (4-49) U/L Alkaline Phosphatase (38-126) U/L Total Protein (6.3-8.2) g/dL Albumin (3.5-5.0) g/dL Lipase (23-300) U/L Urine Color Colorless Urine Appearance Clear (Clear) Urine pH 5.5 (5.0-8.0) Ur Specific [place] 1.038 H (1.001-1.035) Urine Protein Negative (Negative) Urine Glucose (UA) Negative (Negative) Urine Ketones Negative (Negative) Urine Blood Negative (Negative) Urine Nitrite Negative (Negative) Urine Bilirubin Negative (Negative) Urine Urobilinogen <2.0 (<2.0) mg/dL Ur Leukocyte Esterase Negative (Negative) Disposition <Tami Mallory - Last Filed: 01/16/25 17:38> Is patient prescribed a controlled substance at d/c from ED?: No <Genoveva Kirk - Last Filed: 01/19/25 21:20> Clinical Impression: Abdominal pain Disposition: HOME SELF-CARE Condition: Stable Instructions (If sedation given, give patient instructions): Abdominal Pain (ED) Additional Instructions: Please follow up with your doctor. Return to the emergency department for new or worsening symptoms. Referrals: Reji Mustafa DO [Primary Care Provider] - 1-2 days
[2025-01-16 17:41] VITALS: RESP 18
[2025-01-16 18:30] LABS: Basophils # (A) 0.06 10*3/uL (0.00-0.10); Basophils % (A) 0.9 %; Eosinophils # (A) 0.12 10*3/uL (0.04-0.35); Eosinophils % (A) 1.7 %; HCT 47.4 % (39.6-50.0); HGB 16.3 g/dL (13.0-17.0); Lymphocytes # (A) 2.15 10*3/uL (0.90-5.00); Lymphocytes % (A) 30.8 %; MCH 31.2 pg (27.0-32.0); MCHC 34.4 g/dL (32.0-37.0); MCV 90.8 fL (80.0-97.0); Mean Platelet Volume 11.9 fL (9.5-12.2); Monocytes # (A) 0.83 10*3/uL (0.20-1.00); Monocytes % (A) 11.9 %; Neutrophils % (A) 54.3 %; Platelet Count 156 10*3/uL (140-440); RBC 5.22 10*6/uL (4.40-5.60); RDW 13.4 % (11.5-14.5); WBC 6.99 10*3/uL (4.50-10.00)
[2025-01-16 18:40] LABS: ALT 38 U/L (4-49); AST 42 U/L (17-59); African American GFR (CKD) >90 (>60 ml/min/1.73 sqM); Albumin 4.4 g/dL (3.5-5.0); Alkaline Phosphatase 71 U/L (38-126); Anion Gap 7 mmol/L; Blood Urea Nitrogen 12 mg/dL (9-20); Calcium 9.6 mg/dL (8.4-10.2); Carbon Dioxide 26 mmol/L (22-30); Chloride 104 mmol/L (98-107); Glucose 96 mg/dL (74-99); Lipase 103 U/L (23-300); Non-African American GFR(CKD) 85 (>60 ml/min/1.73 sqM); Potassium 4.3 mmol/L (3.5-5.1); Sodium 137 mmol/L (137-145); Total Bilirubin 0.8 mg/dL (0.2-1.3); Total Protein 7.2 g/dL (6.3-8.2)
[2025-01-16 20:06] LABS: Appearance,Urine Clear (Clear); Color,Urine Colorless; Specific Gravity,Urine 1.038 (1.001-1.035)
[2025-01-16 20:07] LABS: Bilirubin,Urine Negative (Negative); Blood,Urine Negative (Negative); Glucose,Urine (UA) Negative (Negative); Ketones,Urine Negative (Negative); Leukocyte Esterase,Urine Negative (Negative); Nitrite,Urine Negative (Negative); PH, Urine 5.5 (5.0-8.0); Protein,Urine Negative (Negative); Urobilinogen,Urine <2.0 mg/dL (<2.0)
--- NOTE | 2025-01-16 21:12 | CT ---
EXAMINATION TYPE: CT abdomen pelvis w con DATE OF EXAM: 01/16/2025 7:11 PM COMPARISON: None. CLINICAL INDICATION: Male, 79 years old with history of RLQ ab pain, RLQ PAIN, SUSPECTED TECHNIQUE: Axial images were obtained from above the diaphragm to the pubic rami in the axial plane a t 5 mm thick sections. Reconstructed images are reviewed on the computer in the coronal plane. CONTRAST: 100 mL of Isovue 300. Study performed without Oral Contrast DLP: 1765.4 mGycm, Automated exposure control for dose reduction was used. FINDINGS: Limited CT sections are obtained the lung bases. The lung bases are clear. CT ABDOMEN: Liver: Normal Spleen: Normal Pancreas: Normal Adrenal glands: The adrenal glands are normal. Gallbladder: Normal Kidneys: No masses are evident. No hydronephrosis is present. No cysts are present. No renal stone s Aorta: Vascular calcification is within the aorta. Inferior vena cava: Normal. CT PELVIS: Loops of bowel within the abdomen and pelvis are normal. This study is without oral contrast limi ting bowel evaluation. Appendix: Normal and air-filled as visualized. Urinary bladder: Normal. Genitourinary structures: Prostate appears normal Osseous structures: No suspicious lytic or sclerotic lesions. Degenerative disc changes are through t he lumbar spine IMPRESSION: 1. No suspicious abnormality to account for right lower quadrant pain. Normal appendix. [facility], , 01/16/2025 9:09 PM
[2025-01-16 22:52] VITALS: BP 149/91; PULSE 65; TEMP 97.5
== END 2025-01-16 22:52 | disposition home or self-care (01) ==
LOC: EC 17:12
DX: R10.31 Right lower quadrant pain (principal); Z87.891 Personal history of nicotine dependence
CPT/HCPCS: 36415; 80053; 83605; 83690; 85025; 81003; 74177; 99284; Q9967